=== PATIENT | female | born 1965 | race Caucasian/White ===

== ENCOUNTER 2017-01-28 10:08 | Emergency (ER) | payer OTHER ==
[~2017-01-28] VITALS: Ht 167.6 cm; Wt 82.0 kg
[~2017-01-28 10:08] MED LIST: ASCOMP WITH CO1 EACH; CIPRO500 MG PO; FLAGYL500 MG PO; PERCOCET 5/31 TABLET PO; ZOFRAN ODT4 MG PO
[2017-01-28 10:45] LABS: HEMATOCRIT 40.3 % (36.0-46.0); MCH 30.5 PG (29.0-34.0); MCHC 33.5 G/DL (30.0-36.0); MCV 91.2 FL (83-99); MEAN PLAT.VOLUME 9.1 uM^3 (9.5-12.4); PLATELET COUNT 275 K/uL (156-360); RBC DIS.WIDTH-CV 13.1 % (11.8-14.6); RBC DIS.WIDTH-SD 44.2 % (39-53); RED BLOOD COUNT 4.42 M/uL (3.80-5.20); WHITE BLOOD COUNT 8.7 K/uL (4.1-10.2)
[2017-01-28 10:53] LABS: CHLORIDE 106 mEq/L (99-109); POTASSIUM 3.3 mEq/L (3.7-5.4); SODIUM 142 mEq/L (136-147)
[2017-01-28 10:54] LABS: GLUCOSE 130 mg/dL (70-99)
[2017-01-28 10:56] LABS: ANION GAP 10 MEQ/L (2-14)
[2017-01-28 10:58] LABS: GFR ESTIMATE (CALCULATED) > 59 mL/min/
[2017-01-28 10:59] LABS: UREA NITROGEN (BUN) 8 mg/dL (9-23)
[2017-01-28 11:08] LABS: TROP-I INTERPRETATION NEGATIVE; TROPONIN-I < 0.01 ng/mL (0.0-0.30)
[2017-01-28 12:00] LABS: ADD MIUA? NO; BILIRUBIN NEGATIVE; BLOOD NEGATIVE; COLOR STRAW ((YELLOW)); GLUCOSE (STRIP) NEGATIVE; KETONES NEGATIVE; LEUKOCYTES NEGATIVE; NITRITE NEGATIVE; PROTEIN (STRIP) NEGATIVE; SPECIFIC GRAVITY 1.008 (1.000-1.030); UCUL ADDED? NO; UROBILINOGEN 0.2 MG/DL (0.2-1.0)
[2017-01-28] MEDS ORDERED: TESSALON PERLE100 MG PO (13:45)
[2017-01-28] MEDS ORDERED: VENTOLIN HFA18 GM IH (13:45)
[2017-01-28] MEDS ORDERED: K-DUR20 MEQ PO (13:46)
[2017-01-28 13:54] LABS: TROP-I INTERPRETATION NEGATIVE; TROPONIN-I < 0.01 ng/mL (0.0-0.30)
[2017-01-28] MEDS ORDERED: TYLENOL WITH C1 EACH PO (14:06)
[2017-01-28 14:29] LABS: D-DIMER ELISA < 150.00 ng/mLDDU (<230)
[2017-01-28 14:55] VITALS: BP 136/85
== END 2017-01-28 14:55 | disposition home or self-care (01) ==
LOC: EME 10:08
PROVIDERS: Nurse Practitioner Family
DX: R07.89 Other chest pain (principal); J06.9 Acute upper respiratory infection, unspecified; F17.210 Nicotine dependence, cigarettes, uncomplicated
CPT/HCPCS: 71020; 80048; 81003; 84484; 85027; 85379; 87040; 93005; 94640; 99281; 99284

== ENCOUNTER 2017-02-01 05:28 | Emergency (ER) | payer OTHER ==
[~2017-02-01] VITALS: Ht 167.6 cm; Wt 81.4 kg
[~2017-02-01 05:28] MED LIST changes: +K-DUR20 MEQ PO; +TESSALON PERLE100 MG PO; +TYLENOL WITH C1 EACH PO; +VENTOLIN HFA18 GM IH
[2017-02-01 05:56] LABS: HEMATOCRIT 40.9 % (36.0-46.0); MCH 30.7 PG (29.0-34.0); MCHC 33.3 G/DL (30.0-36.0); MCV 92.3 FL (83-99); PLATELET COUNT 280 K/uL (156-360); RBC DIS.WIDTH-CV 13.3 % (11.8-14.6); RBC DIS.WIDTH-SD 45.5 % (39-53); RED BLOOD COUNT 4.43 M/uL (3.80-5.20); WHITE BLOOD COUNT 7.5 K/uL (4.1-10.2)
[2017-02-01 06:10] LABS: CHLORIDE 102 mEq/L (99-109); POTASSIUM 3.8 mEq/L (3.7-5.4); SODIUM 138 mEq/L (136-147)
[2017-02-01 06:12] LABS: GLUCOSE 103 mg/dL (70-99)
[2017-02-01 06:13] LABS: ANION GAP 10 MEQ/L (2-14)
[2017-02-01 06:16] LABS: GFR ESTIMATE (CALCULATED) > 59 mL/min/
[2017-02-01 06:17] LABS: TROP-I INTERPRETATION NEGATIVE; TROPONIN-I < 0.01 ng/mL (0.0-0.30); UREA NITROGEN (BUN) 9 mg/dL (9-23)
[2017-02-01 09:36] LABS: TOTAL BILIRUBIN 0.3 mg/dL (0.0-1.0)
[2017-02-01 09:37] LABS: ALKALINE PHOSPHATASE 99 IU/L (3-129)
[2017-02-01 09:39] LABS: DIRECT BILIRUBIN 0.1 mg/dL (0.0-0.3)
[2017-02-01 09:40] LABS: LIPASE 7 U/L (1.0-51.0)
[2017-02-01 10:56] LABS: TROP-I INTERPRETATION NEGATIVE; TROPONIN-I < 0.01 ng/mL (0.0-0.30)
[2017-02-01 13:28] VITALS: BP 128/71
== END 2017-02-01 13:28 | disposition home or self-care (01) ==
LOC: EME 05:28
PROVIDERS: Emergency Medicine
DX: R07.9 Chest pain, unspecified (principal); R51 Headache; M54.2 Cervicalgia; R20.0 Anesthesia of skin; R10.13 Epigastric pain; R10.11 Right upper quadrant pain; M41.9 Scoliosis, unspecified; F17.200 Nicotine dependence, unspecified, uncomplicated
CPT/HCPCS: 71020; 76705; 80048; 80076; 83690; 84484; 85027; 93005; 99281; 99284; S0028